=== PATIENT | male | born 1960 | race Caucasian/White ===

== ENCOUNTER 2020-08-10 05:18 | Emergency (ER) | payer BC ==
[2020-08-10] MEDS ORDERED: TORAdol 30 mg Injection IV ONE (05:42)
[2020-08-10] MEDS ORDERED: Zofran 4 MG/2 ML VIAL IV ONE (05:42)
[2020-08-10] MEDS ORDERED: Sodium Chloride 0.9% 1000 ML 1,000 ML IV STA (05:42)
[2020-08-10] MEDS ORDERED: TYLENOL 325 MG PO ONE (05:42)
[2020-08-10] MEDS ORDERED: ROCEPHIN 2 Gm-D5w 50ML BAG** 2 G/50 ML IVPB IV STA (05:48)
--- NOTE | 2020-08-10 05:54 | ERPHSYRPT ---
<KISTEVIE - Last Filed: 08/10/20 07:45> - History of Present Illness Source: patient Exam Limitations: no limitations Patient Subjective Stated Complaint: Patient states " I have been having back/flank pain for several weeks but last night it got worse and it hurts like a bitch to pee and I feel when I pee I'm peeing fire and I have to pee like every 5-10 minutes". Triage Nursing Assessment: Patient arrived to ED per self and ambulated to room without difficulty. Patient A/O times 4. Patient able to follow instructions without difficulty. Lungs clear bilateral A/P throughout. Patient denies SOB. Patient denies chest pain. No S/S of respiratory distress noted. Cap refill < 3 seconds. Hx Tetanus, Diphtheria Vaccination/Date Given: Yes Hx Influenza Vaccination/Date Given: No Hx Pneumococcal Vaccination/Date Given: No Immunizations Up to Date: Yes <AKSHAT MIGUEL - Last Filed: 08/10/20 22:08> - History of Present Illness Time Seen by Provider: 08/10/20 05:41 Physician History: Abdominal pain. Starting tonight. No falls no trauma. States he feels he has a UTI. He has to go every 10 to 15 minutes. No history of STDs. States he is not sexually active. No actual penis abnormalities. He also has low back pain. None focal. Location: low back pain Quality: sharp Radiation: none Severity: moderate Duration: last night Timing: gradual Modifying factors/associated signs and symptoms: urinary frequency Patient has no red flag symptoms for back pain today: No Loss of control of the bowel or bladder. No weakness or numbness in a leg or arm. No foot drop, disturbed gait. No high fever, no IV drug use. No saddle anaesthesia (numbness of the anus, perineum or genitals). No trauma or h/o cancer (AKSHAT MIGUEL) Allergies/Adverse Reactions: No Known Drug Allergies Allergy (Unverified 08/10/20 05:51) Travel Risk - International Travel Have you traveled outside of the country in past 3 weeks: No - Coronavirus Screening Close contact with a COVID-19 positive Pt in past 14-21 Days: No - Vaccine Status Have you recieved a Covid-19 vaccination: Yes [facility]: Moderna - Vaccination Dates Date of 2cond Vaccination (if applicable): 08/15/20 <AKSHAT MIGUEL - Last Filed: 08/10/20 22:08> - Review of Systems Constitutional: No Fever, No Chills Eyes: No Symptoms Ears, Nose, & Throat: No Symptoms Respiratory: No Cough, No Dyspnea Cardiac: No Chest Pain, No Edema, No Syncope Abdominal/Gastrointestinal: No Abdominal Pain, No Nausea, No Vomiting, No Diarrhea Genitourinary Symptoms: Dysuria, Frequency Musculoskeletal: Other (low back pain ), No Back Pain, No Neck Pain Skin: No Rash Neurological: No Dizziness, No Focal Weakness, No Sensory Changes Psychological: No Symptoms Endocrine: No Symptoms All Other Systems: Reviewed and Negative <AKSHAT MIGUEL - Last Filed: 08/10/20 22:08> - Past Medical History Pertinent Past Medical History: No Neurological History: No Pertinent History ENT History: No Pertinent History Cardiac History: No Pertinent History Respiratory History: No Pertinent History Endocrine Medical History: No Pertinent History Musculoskeletal History: No Pertinent History GI Medical History: No Pertinent History History: No Pertinent History Psycho-Social History: No Pertinent History Male Reproductive Disorders: No Pertinent History - Past Surgical History Past Surgical History: Yes Neuro Surgical History: No Pertinent History Cardiac: No Pertinent History Respiratory: No Pertinent History Gastrointestinal: No Pertinent History Genitourinary: No Pertinent History Musculoskeletal: No Pertinent History Male Surgical History: No Pertinent History Other Surgical History: ACL Left Knee Repair - Social History Smoking Status: Current every day smoker How long have you smoked: 40 year Exposure to second hand smoke: No Drug Use: none Patient Lives Alone: No <AKSHAT MIGUEL - Last Filed: 08/10/20 22:08> - Physical Exam General Appearance: no apparent distress, alert Eye Exam: PERRL/EOMI, eyes nml inspection Ears, Nose, Throat Exam: normal ENT inspection, TMs normal, pharynx normal, moist mucous membranes Neck Exam: normal inspection, non-tender, supple, full range of motion Respiratory Exam: normal breath sounds, lungs clear, No respiratory distress Cardiovascular Exam: regular rate/rhythm, normal heart sounds, normal peripheral pulses Gastrointestinal/Abdomen Exam: soft, normal bowel sounds, No tenderness, No mass Male Genitalia Exam: other (Genital exam normal. Patient is circumcised. No blood at the meatus. Testicles in normal lie. No signs of testicular torsion.) Back Exam: normal inspection, normal range of motion, other, No CVA tenderness, No vertebral tenderness Extremity Exam: normal inspection, normal range of motion, pelvis stable Neurologic Exam: alert, oriented x 3, cooperative, normal mood/affect, nml cerebellar function, nml station & gait, sensation nml, No motor deficits Skin Exam: normal color, warm, dry, No rash Lymphatic Exam: No adenopathy SpO2: 96 <AKSHAT MIGUEL - Last Filed: 08/10/20 22:08> - Nursing Vital Signs Nursing Vital Signs: Initial Vital Signs Temperature 98.7 F 08/10/20 05:28 Pulse Rate 98 H 08/10/20 05:28 Respiratory Rate 18 08/10/20 05:28 Blood Pressure 148/87 08/10/20 05:28 O2 Sat by Pulse Oximetry 96 08/10/20 05:28 Pain Scale Pain Intensity [Lower 8 Generalized] Pain Intensity 3 Ordered Tests: Active Orders 24 hr Category Date Time Status EKG-ER Only STAT Care 08/10/20 05:42 Completed IV Insertion STAT Care 08/10/20 05:42 Completed ABDOMEN AND PELVIS W&WO CONTRA [CT] Stat Exams 08/10/20 05:43 Completed BLOOD CULTURE Stat Lab 08/10/20 05:34 Received CBC W DIFF Stat Lab 08/10/20 05:50 Completed CMP Stat Lab 08/10/20 05:50 Completed CULTURE,URINE Stat Lab 08/10/20 05:50 Received LIPASE Stat Lab 08/10/20 05:50 Completed Lactic Acid Stat Lab 08/10/20 05:53 Completed TROPONIN Q3H Lab 08/10/20 05:50 Completed UA W/RFX UR CULTURE Stat Lab 08/10/20 05:50 Completed Urine Triage Profile Stat Lab 08/10/20 05:50 Completed Medication Summary Discontinued Medications Generic Name Dose Route Start Last Admin Trade Name Freq PRN Reason Stop Dose Admin Acetaminophen 975 mg 08/10/20 05:42 08/10/20 06:07 Tylenol 325 Mg PO 08/10/20 05:43 975 mg STAT ONE Administration Acetaminophen Confirm 08/10/20 05:57 Tylenol 325 Mg Administered 08/10/20 05:58 Dose 975 mg .ROUTE .STK-MED ONE Sodium Chloride 1,000 mls @ 999 mls/hr 08/10/20 05:42 08/10/20 06:04 Sodium Chloride 0.9% 1000 Ml IV 08/10/20 06:42 999 mls/hr .Q1H1M STA Administration Ceftriaxone Sodium/Dextrose 2 g in 50 mls @ 100 mls/hr 08/10/20 05:48 08/10/20 06:19 Rocephin 2 Gm-D5w 50ml Bag IV 08/10/20 06:17 100 ml/hr STAT STA 100 mls/hr Administration Sodium Chloride Confirm 08/10/20 05:57 Sodium Chloride 0.9% 1000 Ml Administered 08/10/20 05:58 Dose 1,000 mls @ ud .ROUTE .STK-MED ONE Ceftriaxone Sodium/Dextrose Confirm 08/10/20 05:57 Rocephin 2 Gm-D5w 50ml Bag Administered 08/10/20 05:58 Dose 2 g in 50 mls @ ud IV .STK-MED ONE Ketorolac Tromethamine 30 mg 08/10/20 05:42 08/10/20 06:05 Toradol 30 Mg Injection IV 08/10/20 05:43 30 mg STAT ONE Administration Ketorolac Tromethamine Confirm 08/10/20 05:57 Toradol 30 Mg Injection Administered 08/10/20 05:58 Dose 30 mg .ROUTE .STK-MED ONE Ketorolac Tromethamine Confirm 08/10/20 06:07 Toradol 30 Mg Injection Administered 08/10/20 06:08 Dose 30 mg .ROUTE .STK-MED ONE Ondansetron HCl 8 mg 08/10/20 05:42 08/10/20 06:05 Zofran 4 Mg/2 Ml Vial IV 08/10/20 05:43 8 mg STAT ONE Administration Ondansetron HCl Confirm 08/10/20 05:56 Zofran 4 Mg/2 Ml Vial Administered 08/10/20 05:57 Dose 4 mg .ROUTE .STK-MED ONE Ondansetron HCl Confirm 08/10/20 06:06 Zofran 4 Mg/2 Ml Vial Administered 08/10/20 06:07 Dose 4 mg .ROUTE .STK-MED ONE Ondansetron HCl Confirm 08/10/20 06:07 Zofran 4 Mg/2 Ml Vial Administered 08/10/20 06:08 Dose 4 mg .ROUTE .STK-MED ONE Phenazopyridine HCl 200 mg 08/10/20 07:15 08/10/20 07:17 Pyridium 200 Mg PO 08/10/20 07:16 200 mg STAT ONE Administration Phenazopyridine HCl Confirm 08/10/20 07:16 Pyridium 200 Mg Administered 08/10/20 07:17 Dose 200 mg .ROUTE .STK-MED ONE Lab/Rad Data: Laboratory Result Diagrams 08/10/20 05:50 08/10/20 05:50 Laboratory Results 08/10/20 08/10/20 08/10/20 Range/Units 05:53 05:50 05:50 WBC (4.0-10.5) K/mm3 RBC (4.1-5.6) M/mm3 Hgb (12.5-18.0) gm/dl Hct (42-50) % MCV (78-100) fl MCH (26-32) pg MCHC (32-36) g/dl RDW (11.5-14.0) % Plt Count (150-450) K/mm3 MPV (7.5-11.0) fl Gran % (36.0-66.0) % Eos # (Auto) (0-0.5) Absolute Lymphs (auto) (1.0-4.6) Absolute Monos (auto) (0.0-1.3) Lymphocytes % (24.0-44.0) % Monocytes % (0.0-12.0) % Eosinophils % (0.00-5.0) % Basophils % (0.0-0.4) % Absolute Granulocytes (1.4-6.9) Basophils # (0-0.4) Sodium (137-145) mmol/L Potassium (3.5-5.1) mmol/L Chloride (98-107) mmol/L Carbon Dioxide (22-30) mmol/L Anion Gap (5-15) MEQ/L BUN (9-20) mg/dL Creatinine (0.66-1.25) mg/dL Estimated GFR ML/MIN Glucose (74-106) mg/dL Lactic Acid 1.4 (0.4-2.0) Calcium (8.4-10.2) mg/dL Total Bilirubin (0.2-1.3) mg/dL AST (17-59) U/L ALT (0-50) U/L Alkaline Phosphatase (38-126) U/L Troponin I < 0.012 (0.000-0.034) ng/mL Serum Total Protein (6.3-8.2) g/dL Albumin (3.5-5.0) g/dL Lipase (23-300) U/L Urine Color (YELLOW) Urine Appearance (CLEAR) Urine pH (5-6) Ur Specific Rohwer (1.005-1.025) Urine Protein (Negative) Urine Ketones (NEGATIVE) Urine Blood (0-5) Lion/ul Urine Nitrite (NEGATIVE) Urine Bilirubin (NEGATIVE) Urine Urobilinogen (0-1) mg/dL Ur Leukocyte Esterase (NEGATIVE) Urine WBC (Auto) (0-5) /HPF Urine RBC (Auto) (0-2) /HPF U Epithel Cells (Auto) (FEW) /HPF Urine Bacteria (Auto) (NEGATIVE) /HPF Amorphous Crystals (NEGATIVE) /HPF Urine Mucus (Auto) (NEGATIVE) /HPF Urine Culture Reflexed (NO) Urine Glucose (NEGATIVE) mg/dL Urine Opiates Level (NEGATIVE) Ur Methadone (NEGATIVE) Urine Barbiturates (NEGATIVE) Ur Phencyclidine (PCP) (NEGATIVE) Urine Amphetamine (NEGATIVE) U Benzodiazepine Level (NEGATIVE) Urine Cocaine (NEGATIVE) Urine Marijuana (THC) (NEGATIVE) Chlamydia DNA Probe NOT DETECTED (NEGATIVE) N.gonorrhoeae DNA Probe NOT DETECTED (NEGATIVE) 08/10/20 08/10/20 08/10/20 Range/Units 05:50 05:50 05:50 WBC 18.5 H (4.0-10.5) K/mm3 RBC 4.88 (4.1-5.6) M/mm3 Hgb 14.6 (12.5-18.0) gm/dl Hct 42.3 (42-50) % MCV 86.7 (78-100) fl MCH 29.9 (26-32) pg MCHC 34.5 (32-36) g/dl RDW 13.5 (11.5-14.0) % Plt Count 233 (150-450) K/mm3 MPV 11.1 H (7.5-11.0) fl Gran % 88.5 H (36.0-66.0) % Eos # (Auto) 0.08 (0-0.5) Absolute Lymphs (auto) 1.00 (1.0-4.6) Absolute Monos (auto) 1.01 (0.0-1.3) Lymphocytes % 5.4 L (24.0-44.0) % Monocytes % 5.5 (0.0-12.0) % Eosinophils % 0.4 (0.00-5.0) % Basophils % 0.2 (0.0-0.4) % Absolute Granulocytes 16.34 H (1.4-6.9) Basophils # 0.03 (0-0.4) Sodium 140 (137-145) mmol/L Potassium 4.0 (3.5-5.1) mmol/L Chloride 106 (98-107) mmol/L Carbon Dioxide 23 (22-30) mmol/L Anion Gap 15.1 H (5-15) MEQ/L BUN 16 (9-20) mg/dL Creatinine 1.05 (0.66-1.25) mg/dL Estimated GFR > 60.0 ML/MIN Glucose 113 H (74-106) mg/dL Lactic Acid (0.4-2.0) Calcium 9.4 (8.4-10.2) mg/dL Total Bilirubin 0.70 (0.2-1.3) mg/dL AST 27 (17-59) U/L ALT 20 (0-50) U/L Alkaline Phosphatase 90 (38-126) U/L Troponin I (0.000-0.034) ng/mL Serum Total Protein 8.0 (6.3-8.2) g/dL Albumin 4.7 (3.5-5.0) g/dL Lipase 130 (23-300) U/L Urine Color (YELLOW) Urine Appearance (CLEAR) Urine pH (5-6) Ur Specific Rohwer (1.005-1.025) Urine Protein (Negative) Urine Ketones (NEGATIVE) Urine Blood (0-5) Lion/ul Urine Nitrite (NEGATIVE) Urine Bilirubin (NEGATIVE) Urine Urobilinogen (0-1) mg/dL Ur Leukocyte Esterase (NEGATIVE) Urine WBC (Auto) (0-5) /HPF Urine RBC (Auto) (0-2) /HPF U Epithel Cells (Auto) (FEW) /HPF Urine Bacteria (Auto) (NEGATIVE) /HPF Amorphous Crystals (NEGATIVE) /HPF Urine Mucus (Auto) (NEGATIVE) /HPF Urine Culture Reflexed (NO) Urine Glucose (NEGATIVE) mg/dL Urine Opiates Level NEGATIVE (NEGATIVE) Ur Methadone NEGATIVE (NEGATIVE) Urine Barbiturates NEGATIVE (NEGATIVE) Ur Phencyclidine (PCP) NEGATIVE (NEGATIVE) Urine Amphetamine NEGATIVE (NEGATIVE) U Benzodiazepine Level NEGATIVE (NEGATIVE) Urine Cocaine NEGATIVE (NEGATIVE) Urine Marijuana (THC) NEGATIVE (NEGATIVE) Chlamydia DNA Probe (NEGATIVE) N.gonorrhoeae DNA Probe (NEGATIVE) 08/10/20 Range/Units 05:50 WBC (4.0-10.5) K/mm3 RBC (4.1-5.6) M/mm3 Hgb (12.5-18.0) gm/dl Hct (42-50) % MCV (78-100) fl MCH (26-32) pg MCHC (32-36) g/dl RDW (11.5-14.0) % Plt Count (150-450) K/mm3 MPV (7.5-11.0) fl Gran % (36.0-66.0) % Eos # (Auto) (0-0.5) Absolute Lymphs (auto) (1.0-4.6) Absolute Monos (auto) (0.0-1.3) Lymphocytes % (24.0-44.0) % Monocytes % (0.0-12.0) % Eosinophils % (0.00-5.0) % Basophils % (0.0-0.4) % Absolute Granulocytes (1.4-6.9) Basophils # (0-0.4) Sodium (137-145) mmol/L Potassium (3.5-5.1) mmol/L Chloride (98-107) mmol/L Carbon Dioxide (22-30) mmol/L Anion Gap (5-15) MEQ/L BUN (9-20) mg/dL Creatinine (0.66-1.25) mg/dL Estimated GFR ML/MIN Glucose (74-106) mg/dL Lactic Acid (0.4-2.0) Calcium (8.4-10.2) mg/dL Total Bilirubin (0.2-1.3) mg/dL AST (17-59) U/L ALT (0-50) U/L Alkaline Phosphatase (38-126) U/L Troponin I (0.000-0.034) ng/mL Serum Total Protein (6.3-8.2) g/dL Albumin (3.5-5.0) g/dL Lipase (23-300) U/L Urine Color YELLOW (YELLOW) Urine Appearance CLOUDY (CLEAR) Urine pH 6.0 (5-6) Ur Specific Rohwer 1.026 (1.005-1.025) Urine Protein 100 (Negative) Urine Ketones NEGATIVE (NEGATIVE) Urine Blood LARGE (0-5) Lion/ul Urine Nitrite NEGATIVE (NEGATIVE) Urine Bilirubin NEGATIVE (NEGATIVE) Urine Urobilinogen 2 (0-1) mg/dL Ur Leukocyte Esterase LARGE (NEGATIVE) Urine WBC (Auto) >100 (0-5) /HPF Urine RBC (Auto) >101 (0-2) /HPF U Epithel Cells (Auto) NONE (FEW) /HPF Urine Bacteria (Auto) MODERATE (NEGATIVE) /HPF Amorphous Crystals FEW (NEGATIVE) /HPF Urine Mucus (Auto) SLIGHT (NEGATIVE) /HPF Urine Culture Reflexed YES (NO) Urine Glucose NEGATIVE (NEGATIVE) mg/dL Urine Opiates Level (NEGATIVE) Ur Methadone (NEGATIVE) Urine Barbiturates (NEGATIVE) Ur Phencyclidine (PCP) (NEGATIVE) Urine Amphetamine (NEGATIVE) U Benzodiazepine Level (NEGATIVE) Urine Cocaine (NEGATIVE) Urine Marijuana (THC) (NEGATIVE) Chlamydia DNA Probe (NEGATIVE) N.gonorrhoeae DNA Probe (NEGATIVE) - Progress Counseled pt/family regarding: lab results, diagnosis, need for follow-up, rad results <STEVIE EMERSON - Last Filed: 08/10/20 07:45> - Progress Progress: improved <AKSHAT MIGUEL - Last Filed: 08/10/20 22:08> - Progress Progress Note: 08/10/20 07:45 Patient is checked out to me at shift change from Dr. Miguel meant pending CT results. CT showed no pyelonephritis/perinephric abscess/stone/obstruction, does have hepatic cyst but no other acute findings. Has a white count of 18, renal functions are unremarkable. He is been given a dose of Rocephin in here I would continue with Cipro to go home. On my evaluation patient does not have any peritoneal signs and his pain is much improved. Recommended taking Tylenol ibuprofen for symptomatic relief. Discussed signs symptoms of worsening needing return to ER which patient seems understanding (STEVIE EMERSON) 08/10/20 05:54 differential diagnosis includes kidney stone, compression fracture, infection, UTI, triple AAA - basic labs including: CBC, lipase, CMP, UA - insert IV for fluids, pain meds, nausea control - consider imaging: CT ab/pelvis - we will give a dose of rocephin as well 08/10/20 06:56 Patient does have a UTI. Receiving Rocephin here. Will need home antibiotics. CT scan pending. Disposition per this. 08/10/20 07:01 Patient disposition and checkout to Dr. Emerson. He will see patient in follow-up on scans. (AKSHAT MIGUEL) - Departure Departure Disposition: Home Critical Care Time: No <STEVIE EMERSON - Last Filed: 08/10/20 07:45> - Departure Departure Disposition: Home <AKSHAT MIGUEL - Last Filed: 08/10/20 22:08> - Departure Clinical Impression: Acute UTI Condition: Stable Referrals: EDIE OAKLEY MD [Primary Care Provider] - Follow Up with PCP/3 days Instructions: Urinary Tract Infection, Adult (DC) Additional Instructions: Take Tylenol/ibuprofen as needed for pain. Drink plenty of fluids. Follow-up with primary care for reevaluation. Follow urine culture results and may need to change antibiotics as per culture sensitivity. Return to ER for worsening pain or if develop fever chills vomiting etc. Prescriptions: Ibuprofen 600 mg PO Q6HPRN PRN 10 Days #20 tablet PRN Reason: Pain Ciprofloxacin [Cipro 500 MG] 500 mg PO BID #14 tablet
[2020-08-10] MEDS ORDERED: Zofran 4 MG/2 ML VIAL ONE ×3 (05:56→06:07)
[2020-08-10] MEDS ORDERED: TORAdol 30 mg Injection ONE ×2 (05:57→06:07)
[2020-08-10] MEDS ORDERED: Sodium Chloride 0.9% 1000 ML 1,000 ML ONE (05:57)
[2020-08-10] MEDS ORDERED: TYLENOL 325 MG ONE (05:57)
[2020-08-10] MEDS ORDERED: ROCEPHIN 2 Gm-D5w 50ML BAG** 2 G/50 ML IVPB IV ONE (05:57)
[2020-08-10 06:09] LABS: Absolute Neutrophil Ct (ANC) 16.34 (1.4-6.9); BASOPHIL % 0.2 % (0.0-0.4); Basophil (Absolute #) 0.03 (0-0.4); Eosinophil % 0.4 % (0.00-5.0); Eosinophil (Absolute #) 0.08 (0-0.5); Hematocrit 42.3 % (42-50); Hemoglobin 14.6 gm/dl (12.5-18.0); Lymphocytes % 5.4 % (24.0-44.0); Mean Cell Volume 86.7 fl (78-100); Mean Corpuscular Hemoglobin 29.9 pg (26-32); Mean Corpuscular Hgb Concent. 34.5 g/dl (32-36); Mean Platelet Volume 11.1 fl (7.5-11.0); Monocyte (Absolute #) 1.01 (0.0-1.3); Monocytes % 5.5 % (0.0-12.0); Neutrophil % 88.5 % (36.0-66.0); Platelet Count 233 K/mm3 (150-450); Red Blood Count 4.88 M/mm3 (4.1-5.6); Red Cell Distribution Width 13.5 % (11.5-14.0); White Blood Count 18.5 K/mm3 (4.0-10.5)
[2020-08-10 06:13] LABS: ALBUMIN 4.7 g/dL (3.5-5.0); ALKALINE PHOSPHATASE 90 U/L (38-126); ANION GAP 15.1 MEQ/L (5-15); BLOOD UREA NITROGEN 16 mg/dL (9-20); CHLORIDE 106 mmol/L (98-107); Calcium 9.4 mg/dL (8.4-10.2); Carbon Dioxide 23 mmol/L (22-30); Creatinine 1 1.05 mg/dL (0.66-1.25); EST GLOMERULAR FILTRATION RATE > 60.0 ML/MIN; Glucose 113 mg/dL (74-106); LIPASE 130 U/L (23-300); SGOT/AST 27 U/L (17-59); SGPT/ALT 20 U/L (0-50); SODIUM 140 mmol/L (137-145)
[2020-08-10 06:16] LABS: Amourphous Crystal FEW /HPF (NEGATIVE); Appearance CLOUDY (CLEAR); Bilirubin NEGATIVE (NEGATIVE); Blood LARGE Ery/ul (0-5); Glucose NEGATIVE (NEGATIVE); Ketones NEGATIVE (NEGATIVE); Leukocyte Esterase LARGE (NEGATIVE); Mucus SLIGHT /HPF (NEGATIVE); Nitrite NEGATIVE (NEGATIVE); Protein,Urine Dip 100 (Negative); Specific Gravity 1.026 (1.005-1.025); Urobilinogen 2 mg/dL (0-1); WBC >100 /HPF (0-5)
[2020-08-10 06:17] LABS: Bacteria MODERATE /HPF (NEGATIVE); RBC >101 /HPF (0-2)
[2020-08-10 06:47] LABS: Amphetamine,Urine NEGATIVE (NEGATIVE); Barbiturate,Urine NEGATIVE (NEGATIVE); Benzodiazepine,Urine NEGATIVE (NEGATIVE); Cocaine,Urine NEGATIVE (NEGATIVE); Methadone,Urine NEGATIVE (NEGATIVE); Opiate,Urine NEGATIVE (NEGATIVE); PCP,Urine NEGATIVE (NEGATIVE); THC,Urine NEGATIVE (NEGATIVE)
[2020-08-10 07:09] VITALS: BP 122/72; PULSE 74
[2020-08-10] MEDS ORDERED: PYRIDIUM 200 MG PO ONE (07:15)
[2020-08-10] MEDS ORDERED: PYRIDIUM 200 MG ONE (07:16)
--- NOTE | 2020-08-10 08:47 | XRAY ---
Indication: Bilateral flank pain. Frequent urination. Elevated WBC. Multiple contiguous axial images obtained through the abdomen and pelvis prior to and following 80 cc Isovue 370 contrast as ordered. Comparison: None Lung bases are clear with incidental small right lower lobe calcified granuloma. Heart is not enlarged. Noncontrasted images are negative for pathologic visceral calcification/calculi. Noncontrasted stomach and bowel loops appear nonobstructed. Normal appendix. No free fluid/air. Postcontrast images demonstrates normal visceral enhancement and renal excretion. There are multiple small hepatic cysts, largest 1.7 cm. Spleen is enlarged measuring 13.9 cm. Remaining liver, gallbladder, pancreas, spleen, adrenal glands, kidneys, ureters, and bladder are unremarkable. Minimal aortoiliac calcifications. No AAA or pathologic retroperitoneal lymphadenopathy. Osseous structures intact with mild degenerative changes throughout the thoracolumbar spine greatest at the lumbosacral junction. Impression: 1. Negative for pathologic visceral calcification/calculi. 2. Incidental hepatic cysts and splenomegaly. 3. Remaining CT abdomen/pelvis with and without contrast exam is negative.
[2020-08-10 09:38] LABS: CHLAMYDIA DNA NOT DETECTED (NEGATIVE); GC DNA Probe NOT DETECTED (NEGATIVE)
[2020-08-10 22:08] VITALS: O2SAT 96
== END 2020-08-10 08:15 | disposition home or self-care (01) ==
LOC: ED 05:18
DX: N39.0 Urinary tract infection, site not specified (principal)
CPT/HCPCS: 36000; 36415; 74178; 80053; 80307; 81001; 83605; 83690; 84484; 85025; 87040; 87077; 87086; 87186; 87491; 87591; 93005; 96360; 96365; 96374; 96375; 99284; J0696; J1885; J2405; A9270-GY